=== PATIENT | female | born 1950 | race Two or more races ===

== ENCOUNTER 2021-01-22 10:38 | Outpatient (CLI) | payer OTHER | END 2021-01-22 10:50 | disposition home or self-care (01) | LOC: SONOGRAMA 10:38 | PROVIDERS: ATTEND Surgery | DX: C50.812 Malignant neoplasm of overlapping sites of left female breast (principal); N60.11 Diffuse cystic mastopathy of right breast; N60.12 Diffuse cystic mastopathy of left breast; R92.0 Mammographic microcalcification found on diagnostic imaging of breast ==

== ENCOUNTER 2021-03-05 07:29 | Day surgery (SDC) | payer OTHER ==
[~2021-03-05 07:29] MED LIST: DILTIAZEM ER240 M3 PO; SYNTHROID125 MCG PO
== END 2021-03-06 00:10 | disposition home or self-care (01) ==
LOC: CIR.AMB 07:29
PROVIDERS: ATTEND Surgery
DX: C50.412 Malignant neoplasm of upper-outer quadrant of left female breast (principal); Z20.822 Contact with and (suspected) exposure to COVID-19

== ENCOUNTER 2025-09-06 08:50 | Outpatient (CLI) | payer OTHER | END 2025-09-06 08:55 | disposition home or self-care (01) | LOC: RAD 08:50 | PROVIDERS: ATTEND Internal Medicine Rheumatology | DX: M17.11 Unilateral primary osteoarthritis, right knee (principal); M17.12 Unilateral primary osteoarthritis, left knee ==